=== PATIENT | male | born 1970 | race Caucasian/White ===

== ENCOUNTER 2016-12-13 19:35 | Emergency (ER) | payer OTHER, SELFPAY ==
[~2016-12-13] VITALS: Ht 185.4 cm; Wt 104.3 kg
[2016-12-13] MEDS ORDERED: OMEP20CA3 PO (19:46)
[2016-12-13] MEDS ORDERED: CEFTAROLINE FOSAMIL 600 MG in D5W MINI-BAG PLUS 50 ML IV ONE (20:30)
[2016-12-13 21:06] LABS: BASO # 0.1 K/mm3 (0.0-0.2); BASO % 0.6 % (0.0-1.0); EOS # 0.5 K/mm3 (0.0-0.50); EOS % 3.4 % (0.0-3.0); LARGE UNSTAINED CELL # 0.2 K/mm3 (0.0-0.4); LARGE UNSTAINED CELL % 1.4 % (0.0-4.0); LYMPH # 3.4 K/mm3 (1.5-4.5); LYMPH % 22.1 % (24.0-44.0); MEAN CORPUSCULAR HEMOGLOBIN 31.4 pg (27.0-33.0); MEAN CORPUSCULAR HGB CONC 34.6 g/dl (32.0-36.5); MEAN CORPUSCULAR VOLUME 90.7 fl (80.0-96.0); MONO # 1.4 K/mm3 (0.0-0.8); MONO % 9.8 % (0.0-5.0); NEUTROPHILS % 62.6 % (36.0-66.0); PLATELET COUNT, AUTOMATED 251 k/mm3 (150-450); RED CELL DISTRIBUTION WIDTH 12.2 % (11.5-14.5); WHITE BLOOD COUNT 14.4 K/mm3 (4.0-10.0)
[2016-12-13] MEDS ORDERED: ONDANSETRON 4MG/2ML VIAL (J2405) As Ordered ONE (21:11)
[2016-12-13] MEDS ORDERED: KETOROLAC 30 MG/ML VIAL (J1885) IV ONE (21:15)
[2016-12-13] MEDS ORDERED: ONDANSETRON 4MG/2ML VIAL (J2405) IV ONE (21:15)
[2016-12-13] MEDS ORDERED: BACT800T5 PO (21:59)
[2016-12-13 22:10] VITALS: BP 153/87
== END 2016-12-13 22:13 | disposition home or self-care (01) ==
LOC: M ED 21:37
DX: L03.114 Cellulitis of left upper limb (principal); L03.317 Cellulitis of buttock; L03.012 Cellulitis of left finger; L73.9 Follicular disorder, unspecified; K21.9 Gastro-esophageal reflux disease without esophagitis; F17.200 Nicotine dependence, unspecified, uncomplicated
CPT/HCPCS: 85025; 87040; 96365; 96375; 99282; J1885; J2405

== ENCOUNTER 2017-03-31 15:56 | Emergency (ER) | payer MEDICAID, SELFPAY ==
[~2017-03-31] VITALS: Ht 185.4 cm; Wt 110.1 kg
[~2017-03-31 15:56] MED LIST: BACT800T5 PO; OMEP20CA3 PO
[2017-03-31] MEDS ORDERED: ADVI200T PO (16:10)
[2017-03-31] MEDS ORDERED: CLINDAMYCIN 900 MG in APPROPRIATE DILUENT 1 EA IV ONE (16:45)
[2017-03-31 17:22] LABS: BASO # 0.1 K/mm3 (0.0-0.2); BASO % 0.8 % (0.0-1.0); EOS # 0.3 K/mm3 (0.0-0.50); EOS % 2.6 % (0.0-3.0); LARGE UNSTAINED CELL # 0.3 K/mm3 (0.0-0.4); LARGE UNSTAINED CELL % 2.6 % (0.0-4.0); LYMPH # 2.6 K/mm3 (1.5-4.5); LYMPH % 22.9 % (24.0-44.0); MEAN CORPUSCULAR HEMOGLOBIN 31.4 pg (27.0-33.0); MEAN CORPUSCULAR HGB CONC 35.3 g/dl (32.0-36.5); MONO % 9.1 % (0.0-5.0); NEUTROPHILS # 7.1 K/mm3 (1.8-7.7); NEUTROPHILS % 62.1 % (36.0-66.0); PLATELET COUNT, AUTOMATED 219 k/mm3 (150-450); RED CELL DISTRIBUTION WIDTH 12.4 % (11.5-14.5); WHITE BLOOD COUNT 11.4 K/mm3 (4.0-10.0)
[2017-03-31 17:34] LABS: ANION GAP 6 MEQ/L (8-16); BLOOD UREA NITROGEN 17 MG/DL (7-18); CALCIUM LEVEL 8.9 MG/DL (8.5-10.1); CARBON DIOXIDE LEVEL 25 MEQ/L (21-32); CHLORIDE LEVEL 107 MEQ/L (98-107); CREATININE FOR GFR 0.87 MG/DL (0.70-1.30); GLOMERULAR FILTRATION RATE > 60.0 (>60); GLUCOSE, FASTING 89 MG/DL (70-105); POTASSIUM SERUM 3.7 MEQ/L (3.5-5.1); SODIUM LEVEL 138 MEQ/L (136-145)
[2017-03-31 17:54] LABS: ERYTHROCYTE SEDIMENTATION RATE 21 mm/hr (0-15)
[2017-03-31] MEDS ORDERED: CLEO300C2 PO (18:52)
[2017-03-31 19:01] VITALS: BP 128/87
== END 2017-03-31 19:02 | disposition home or self-care (01) ==
LOC: M ED 15:56
DX: L02.411 Cutaneous abscess of right axilla (principal); L03.115 Cellulitis of right lower limb; Z86.14 Personal history of Methicillin resistant Staphylococcus aureus infection; J45.909 Unspecified asthma, uncomplicated; F17.200 Nicotine dependence, unspecified, uncomplicated; Z79.899 Other long term (current) drug therapy

== ENCOUNTER → 2017-07-09 | Outpatient (CLI) | payer OTHER ==
[~2017-07-09] MED LIST changes: +ADVI200T PO; +CLEO300C2 PO
--- NOTE | 2017-07-09 09:28 | REP ---
Cervical spine age views: Vertebral body heights and alignment are normal C1-C7. Kilos obscured. There is disc space narrowing and degenerative disc disease at C 03/04, / and /. The prevertebral soft tissues are normal. Facets are normally aligned. There is no listhesis on flexion or extension. The odontoid view is unremarkable. There is no bony foraminal encroachment. Impression: Multilevel degenerative disc disease, 99 Signed by Juanjo Cano MD 07/09/2017 09:19 A
--- NOTE | 2017-07-09 09:33 | REP ---
THORACOLUMBAR SPINE, TWO VIEWS: HISTORY: Left sciatica. There is no acute fracture or subluxation. There is an old compression fracture of the T11 vertebral body with minimal height loss. The L3-4 intervertebral disc is decreased in height consistent with disc degeneration. Osteophytes are present on T11, T12, L3 and L4. IMPRESSION: Degenerative change as described above. Signed by Justen Calderon MD 07/09/2017 09:38 A
== END ==
LOC: M LAB 08:29
PROVIDERS: ATTEND Obstetrics & Gynecology
DX: Z13.220 Encounter for screening for lipoid disorders (principal); M50.021 Cervical disc disorder at C4-C5 level with myelopathy; M50.022 Cervical disc disorder at C5-C6 level with myelopathy; M50.023 Cervical disc disorder at C6-C7 level with myelopathy; M51.36 Other intervertebral disc degeneration, lumbar region; M25.78 Osteophyte, vertebrae; Z13.1 Encounter for screening for diabetes mellitus

== ENCOUNTER → 2017-11-29 | Outpatient (CLI) | payer OTHER | LOC: M RAD 15:34 | DX: M21.372 Foot drop, left foot (principal); M51.36 Other intervertebral disc degeneration, lumbar region | CPT/HCPCS: 72148 ==

== ENCOUNTER → 2017-12-31 | Outpatient (CLI) | payer OTHER | LOC: M PAIN 14:45 | DX: G89.29 Other chronic pain (principal); M79.1 Myalgia; M54.5 Low back pain; M53.3 Sacrococcygeal disorders, not elsewhere classified; M46.96 Unspecified inflammatory spondylopathy, lumbar region; G25.81 Restless legs syndrome; E78.1 Pure hyperglyceridemia; F32.9 Major depressive disorder, single episode, unspecified; Z79.899 Other long term (current) drug therapy; Z87.891 Personal history of nicotine dependence | CPT/HCPCS: G0463 ==

== ENCOUNTER 2018-01-24 14:09 | Emergency (ER) | payer OTHER ==
[2018-01-24] MEDS: BACTRIM 160MG/800MG DS TAB PO (17:23)
== END 2018-01-24 17:26 | disposition home or self-care (01) ==
LOC: M ED 14:09
DX: S80.862A Insect bite (nonvenomous), left lower leg, initial encounter (principal); L03.115 Cellulitis of right lower limb; W57.XXXA Bitten or stung by nonvenomous insect and other nonvenomous arthropods, initial encounter; Y92.9 Unspecified place or not applicable; Y93.9 Activity, unspecified; Y99.9 Unspecified external cause status; I10 Essential (primary) hypertension; M54.9 Dorsalgia, unspecified; K21.9 Gastro-esophageal reflux disease without esophagitis; Z79.899 Other long term (current) drug therapy
CPT/HCPCS: 87186

== ENCOUNTER → 2018-02-01 | Outpatient (CLI) | payer OTHER ==
[~2018-02-01] MED LIST changes: -ADVI200T PO; -BACT800T5 PO; +BUPIVACAINE HCL 0.25% 10 ML VIAL As Ordered; +BUPIVACAINE HCL 0.25% 30 ML VIAL As Ordered; -CLEO300C2 PO; -OMEP20CA3 PO; +TRIAMCINOLONE ACETONIDE SUSP 40 MG/ML VIAL (J3301) As Ordered; +diazePAM 5 MG TAB As Ordered; +oxyCODONE 5MG TAB As Ordered
== END ==
LOC: M PAIN 14:45
DX: G89.29 Other chronic pain (principal); M79.1 Myalgia; M54.6 Pain in thoracic spine; M54.5 Low back pain; G25.81 Restless legs syndrome; E78.1 Pure hyperglyceridemia; F32.9 Major depressive disorder, single episode, unspecified; F17.210 Nicotine dependence, cigarettes, uncomplicated; Z79.899 Other long term (current) drug therapy
CPT/HCPCS: J3301

== ENCOUNTER → 2018-04-13 | Outpatient (CLI) | payer OTHER | LOC: M RAD 09:46 | DX: M25.712 Osteophyte, left shoulder (principal) | CPT/HCPCS: 73030 ==

== ENCOUNTER → 2018-04-29 | Outpatient (CLI) | payer OTHER | LOC: M PAIN 14:45 | DX: M54.42 Lumbago with sciatica, left side (principal); M54.41 Lumbago with sciatica, right side; M79.1 Myalgia; E78.1 Pure hyperglyceridemia; G25.81 Restless legs syndrome; F32.9 Major depressive disorder, single episode, unspecified; F17.200 Nicotine dependence, unspecified, uncomplicated; Z79.899 Other long term (current) drug therapy | CPT/HCPCS: G0463 ==

== ENCOUNTER → 2018-05-24 | Outpatient (CLI) | payer OTHER | LOC: M PAIN 12:45 | DX: M79.1 Myalgia (principal); M54.5 Low back pain; M54.6 Pain in thoracic spine; G25.81 Restless legs syndrome; F17.200 Nicotine dependence, unspecified, uncomplicated; Z79.899 Other long term (current) drug therapy | CPT/HCPCS: J3301 ==

== ENCOUNTER → 2018-07-06 | Outpatient (CLI) | payer OTHER | LOC: M PAIN 14:45 | DX: M79.18 Myalgia, other site (principal); M54.42 Lumbago with sciatica, left side; M54.41 Lumbago with sciatica, right side; G25.81 Restless legs syndrome; F17.210 Nicotine dependence, cigarettes, uncomplicated; Z79.899 Other long term (current) drug therapy | CPT/HCPCS: G0463 ==

== ENCOUNTER 2018-08-04 15:15 | Outpatient (RCR) | payer OTHER | END 2018-08-19 | LOC: M PT 08-10 13:59 | DX: G89.29 Other chronic pain (principal) | CPT/HCPCS: 97010 ==

== ENCOUNTER → 2018-08-15 | Outpatient (CLI) | payer OTHER | LOC: M SLEEP HO 12:45 | DX: G47.33 Obstructive sleep apnea (adult) (pediatric) (principal); R40.0 Somnolence ==

== ENCOUNTER → 2018-09-05 | Outpatient (CLI) | payer OTHER ==
[~2018-09-05] MED LIST changes: +ADVI200T PO; +ATOR40TA75; +AUGM875T28 PO; +BACT800T5 PO; -BUPIVACAINE HCL 0.25% 10 ML VIAL As Ordered; +BUPIVACAINE HCL 0.25% 10 ML VIAL As Ordered ONE; -BUPIVACAINE HCL 0.25% 30 ML VIAL As Ordered; +BUPIVACAINE HCL 0.25% 30 ML VIAL As Ordered ONE; +CLEO300C2 PO; +DULO1CAP2; +MOBI4TAB PO; +NORCOTAB PO; +OMEP20CA3 PO; +TESS100C PO; +TRAZ-160; -TRIAMCINOLONE ACETONIDE SUSP 40 MG/ML VIAL (J3301) As Ordered; +TRIAMCINOLONE ACETONIDE SUSP 40 MG/ML VIAL (J3301) As Ordered ONE; -diazePAM 5 MG TAB As Ordered; +diazePAM 5 MG TAB As Ordered ONE; -oxyCODONE 5MG TAB As Ordered; +oxyCODONE 5MG TAB As Ordered ONE
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
== END ==
LOC: M PAIN 14:15
PROVIDERS: ATTEND Anesthesiology
DX: M79.18 Myalgia, other site (principal); G25.81 Restless legs syndrome; E78.5 Hyperlipidemia, unspecified; F17.210 Nicotine dependence, cigarettes, uncomplicated; M54.41 Lumbago with sciatica, right side; M54.42 Lumbago with sciatica, left side; Z79.899 Other long term (current) drug therapy
CPT/HCPCS: 20553; J3301

== ENCOUNTER 2018-09-15 15:15 | Outpatient (RCR) | payer OTHER ==
[~2018-09-15 15:15] MED LIST changes: -BUPIVACAINE HCL 0.25% 10 ML VIAL As Ordered ONE; -BUPIVACAINE HCL 0.25% 30 ML VIAL As Ordered ONE; -TRIAMCINOLONE ACETONIDE SUSP 40 MG/ML VIAL (J3301) As Ordered ONE; -diazePAM 5 MG TAB As Ordered ONE; -oxyCODONE 5MG TAB As Ordered ONE
== END 2018-09-19 ==
LOC: M PT 15:15
PROVIDERS: ATTEND Obstetrics & Gynecology
DX: G89.29 Other chronic pain (principal)

== ENCOUNTER → 2018-10-03 | Outpatient (REF) | payer OTHER ==
[2018-10-03 14:06] LABS: HEMATOCRIT 43.3 % (42.0-52.0); HEMOGLOBIN 14.9 g/dl (13.5-17.5); MEAN CORPUSCULAR HGB CONC 34.4 g/dl (32.0-36.5); MEAN CORPUSCULAR VOLUME 90.2 fl (80.0-96.0); PLATELET COUNT, AUTOMATED 207 10^3/uL (150-450); WHITE BLOOD COUNT 9.3 10^3/uL (4.0-10.0)
== END ==
LOC: M LABDRAW1 12:27
DX: K62.5 Hemorrhage of anus and rectum (principal); R19.7 Diarrhea, unspecified

== ENCOUNTER → 2018-10-04 | Outpatient (REF) | payer OTHER ==
[2018-10-04 12:51] LABS: APPEARANCE, URINE CLEAR (CLEAR); BACTERIA, URINE AUTO NEGATIVE (NEGATIVE); BILIRUBIN, URINE AUTO NEGATIVE (NEGATIVE); BLOOD, URINE BLOOD NEGATIVE (NEGATIVE); COLOR, URINE YELLOW (YELLOW); GLUCOSE, URINE (UA) AUTO NEGATIVE (NEGATIVE); KETONE, URINE AUTO NEGATIVE (NEGATIVE); LEUKOCYTE ESTERASE, URINE AUTO NEGATIVE (NEGATIVE); MUCUS, URINE SMALL (NEGATIVE); NITRITE, URINE AUTO NEGATIVE (NEGATIVE); PROTEIN, URINE AUTO NEGATIVE (NEGATIVE); RBC, URINE AUTO 1 /HPF (0-3); SPECIFIC GRAVITY URINE AUTO 1.026 (1.002-1.035); SQUAMOUS EPITHELIAL CELL UR AU 0 /HPF (0-6); UROBILINOGEN, URINE AUTO 0.2 mg/dL (0.0-2.0); WBC, URINE AUTO 0 /HPF (0-3)
== END ==
LOC: M SFHCPLAZ 12:10
PROVIDERS: ATTEND Student in an Organized Health Care Education/Training Program
DX: N50.89 Other specified disorders of the male genital organs (principal)

== ENCOUNTER → 2018-10-08 | Outpatient (CLI) | payer OTHER ==
--- NOTE | 2018-10-12 09:41 | SLEEPCENT ---
DATE OF PROCEDURE: 10/08/2018 ORDERING PROVIDER: Pina Waddell NP Nocturnal polysomnography was performed for the titration of pressure therapy in this patient with a clinical history of obstructive sleep apnea syndrome confirmed by home testing revealing a respiratory event index of 33.9. For testing, the patient was fit with a [employer]ics Natty View full face mask of medium size, 4 cm of water pressure was initially applied to the circuit and the lights were extinguished. 8 hours and 7 minutes of data were reviewed. There were 327 minutes of sleep identified. Sleep latency was normal at 8 minutes. REM sleep was delayed at 299 minutes. Sleep architecture improved with optimal pressure therapy. Overall sleep efficiency was 68.5%. The electrocardiogram showed a sinus rhythm with an average heart rate of 77 beats per minute. EEG showed fairly normal waveforms for awake and sleep. Respiratory events were best palliated with C-PAP at a pressure of 8 cm of water. There was some persistent limb activity. There were two trains of 30 events and a limb movement arousal index of 13.2. IMPRESSION: 1. Obstructive sleep apnea syndrome (G47.33). 2. Possible periodic limb movement disorder (G47.61). Limb movement arousal index 13.2. RECOMMENDATIONS: Nightly use of pressure therapy at 8 cm of water should be sufficient to address the patient's respiratory obstructive events. Should sleep symptoms persist, interventions to the frequency arousal from limb activity may also be helpful.
== END ==
LOC: M SLEEP 19:04
PROVIDERS: ATTEND Nurse Practitioner Family
DX: G47.33 Obstructive sleep apnea (adult) (pediatric) (principal)

== ENCOUNTER → 2018-10-10 | Outpatient (CLI) | payer OTHER ==
--- NOTE | 2018-10-10 19:29 | REP ---
Clinical: Left scrotal pain/mass. Technique: Real time emanuel scale and color Doppler evaluation using linear high frequency transducer. Findings: The bilateral testicles are normal in contour, size, echogenicity, and vascularity without evidence for intratesticular mass lesion, infectious/inflammatory process, or torsion. Right epididymal head cyst measures 1.1 cm. Left epididymal head cyst corresponding to the palpable mass measures 3.9 cm. Small left varicocele up to 2.6 mm diameter on Valsalva noted. Small nonspecific bilateral hydroceles noted. Right testicle measures 5.2 x 2.6 x 3.6 cm. Left testicle measures 5.3 x 2.8 x 3.7 cm. Impression: 1. Left-sided palpable mass corresponds to 3.9 cm left epididymal head cyst. 1.1 cm right epididymal head cyst also noted. 2. The testicles are normal in appearance and vascularity. Electronically Signed by Julio Rodriguez MD 10/10/2018 07:22 P
== END ==
LOC: M RAD 11:19
PROVIDERS: ATTEND Student in an Organized Health Care Education/Training Program
DX: N50.89 Other specified disorders of the male genital organs (principal)

== ENCOUNTER 2018-12-09 10:06 | Day surgery (SDC) | payer OTHER ==
[~2018-12-09] VITALS: Ht 185.4 cm; Wt 120.7 kg
[~2018-12-09 10:06] MED LIST changes: +ACET-683 PO; -ATOR40TA75; +ATOR40TA75 PO; +DULO1CAP2 PO; +LIDOCAINE 2% INJ 100 MG/5 ML SDV (FOR ANES.) As Ordered ONE; +METH75TA PO; +NICO21DI31 TOP; +NS 1,000 ML IV ONE; +PRAM0.5T7 PO; +PROPOFOL 200 MG/20 ML VIAL As Ordered ONE; +VENTAER INH
[2018-12-09] MEDS ORDERED: PROPOFOL 200 MG/20 ML VIAL As Ordered ONE ×2 (11:48→12:00)
--- NOTE | 2018-12-09 12:10 | ROOR ---
Patient Name: Demetrius Shepherd Procedure Date: 12/09/2018 11:27 AM Date of : 1970 Age: 48 Room: [facility] Gender: Male Note Status: Finalized Procedure: Colonoscopy Indications: Chronic diarrhea, Hematochezia Providers: Javier Conklin MD Referring MD: Yanni Prince Do Requesting Provider: MCKENNA BOYCE MD Medicines: Monitored Anesthesia Care Complications: No immediate complications. Procedure: Pre-Anesthesia Assessment: - Prior to the procedure, a History and Physical was performed, and patient medications and allergies were reviewed. The patient is competent. The risks and benefits of the procedure and the sedation options and risks were discussed with the patient. All questions were answered and informed consent was obtained. Patient identification and proposed procedure were verified by the physician, the nurse and the anesthesiologist in the procedure room. Mental Status Examination: alert and oriented. Airway Examination: normal oropharyngeal airway and neck mobility. Respiratory Examination: clear to auscultation. CV Examination: normal. Prophylactic Antibiotics: The patient does not require prophylactic antibiotics. Prior Anticoagulants: The patient has taken no previous anticoagulant or antiplatelet agents. ASA Grade Assessment: II - A patient with mild systemic disease. After reviewing the risks and benefits, the patient was deemed in satisfactory condition to undergo the procedure. The anesthesia plan was to use monitored anesthesia care (MAC). Immediately prior to administration of medications, the patient was re-assessed for adequacy to receive sedatives. The heart rate, respiratory rate, oxygen saturations, blood pressure, adequacy of pulmonary ventilation, and response to care were monitored throughout the procedure. The physical status of the patient was re-assessed after the procedure. The Colonoscope was introduced through the anus and advanced to the terminal ileum, with identification of the appendiceal orifice and IC valve. The colonoscopy was performed without difficulty. The patient tolerated the procedure well. The quality of the bowel preparation was good. The terminal ileum, ileocecal valve, appendiceal orifice, and rectum were photographed. Scope insertion time was 3 minutes. Scope withdrawal time was 9 minutes. The total duration of the procedure was 12 minutes. Findings: The perianal and digital rectal examinations were normal. The ileocecal valve contained a benign-appearing, intrinsic moderate stenosis that was non-traversed. Biopsies were taken with a cold forceps for histology. Verification of patient identification for the specimen was done by the physician and nurse using the patient's name, date and medical record number. Estimated blood loss was minimal. Five sessile polyps were found in the recto-sigmoid colon. The polyps were 5 to 8 mm in size. These polyps were removed with a cold snare. Resection and retrieval were complete. Multiple small and large-mouthed diverticula were found from sigmoid to descending colon. There was no evidence of diverticular bleeding. Non-bleeding external and internal hemorrhoids were found during retroflexion. The hemorrhoids were medium-sized. Impression: - Stricture at the ileocecal valve. Biopsied. - Five 5 to 8 mm polyps at the recto-sigmoid colon, removed with a cold snare. Resected and retrieved. - Moderate diverticulosis from sigmoid to descending colon. There was no evidence of diverticular bleeding. - Non-bleeding external and internal hemorrhoids. Recommendation: - Patient has a contact number available for emergencies. The signs and symptoms of potential delayed complications were discussed with the patient. Return to normal activities tomorrow. Written discharge instructions were provided to the patient. - High fiber diet. - Continue present medications. - Preparation H suppository: Insert rectally daily for 5 days. - Await pathology results. - Repeat colonoscopy in 3 - 5 years for surveillance based on pathology results. - Based on the biopsy results you will receive a phone call from GI clinic in 2-3 weeks to review the pathology results AND/OR your results will be faxed to your Primary care physician. - Return to primary care physician. Javier Conklin MD Javier Conklin MD 12/09/2018 12:09:58 PM This report has been signed electronically. Number of Addenda: 0 Note Initiated On: 12/09/2018 11:27 AM Estimated Blood Loss: Estimated blood loss was minimal.
--- NOTE | 2018-12-09 12:11 | ROOR ---
Patient Name: Demetrius Shepherd Procedure Date: 12/09/2018 11:25 AM Date of : 1970 Age: 48 Room: [facility] Gender: Male Note Status: Finalized Procedure: Upper GI endoscopy Indications: Suspected gastro-esophageal reflux disease Providers: Javier Conklin MD Referring MD: Yanni Prince Do Requesting Provider: MCKENNA BOYCE MD Medicines: Monitored Anesthesia Care Complications: No immediate complications. Procedure: Pre-Anesthesia Assessment: - Prior to the procedure, a History and Physical was performed, and patient medications and allergies were reviewed. The patient is competent. The risks and benefits of the procedure and the sedation options and risks were discussed with the patient. All questions were answered and informed consent was obtained. Patient identification and proposed procedure were verified by the physician, the nurse and the anesthesiologist in the procedure room. Mental Status Examination: alert and oriented. Airway Examination: normal oropharyngeal airway and neck mobility. Respiratory Examination: clear to auscultation. CV Examination: normal. Prophylactic Antibiotics: The patient does not require prophylactic antibiotics. Prior Anticoagulants: The patient has taken no previous anticoagulant or antiplatelet agents. ASA Grade Assessment: II - A patient with mild systemic disease. After reviewing the risks and benefits, the patient was deemed in satisfactory condition to undergo the procedure. The anesthesia plan was to use monitored anesthesia care (MAC). Immediately prior to administration of medications, the patient was re-assessed for adequacy to receive sedatives. The heart rate, respiratory rate, oxygen saturations, blood pressure, adequacy of pulmonary ventilation, and response to care were monitored throughout the procedure. The physical status of the patient was re-assessed after the procedure. The Endoscope was introduced through the mouth, and advanced to the second part of duodenum. The upper GI endoscopy was accomplished without difficulty. The patient tolerated the procedure well. Findings: The Z-line was regular and was found 40 cm from the incisors. LA Grade A (one or more mucosal breaks less than 5 mm, not extending between tops of 2 mucosal folds) esophagitis with no bleeding was found in the lower third of the esophagus. Biopsies were taken with a cold forceps for histology. Verification of patient identification for the specimen was done by the physician and nurse using the patient's name, date and medical record number. Scattered and patchy moderate inflammation characterized by erosions, erythema, granularity and aphthous ulcerations was found in the gastric antrum. Biopsies were taken with a cold forceps for Helicobacter pylori testing. The duodenal bulb and second portion of the duodenum were normal. Biopsies for histology were taken with a cold forceps for evaluation of celiac disease. Impression: - Z-line regular, 40 cm from the incisors. - LA Grade A reflux esophagitis. Biopsied. - Gastritis. Biopsied. - Normal duodenal bulb and second portion of the duodenum. Biopsied. Recommendation: - Patient has a contact number available for emergencies. The signs and symptoms of potential delayed complications were discussed with the patient. Return to normal activities tomorrow. Written discharge instructions were provided to the patient. - High fiber diet. - Continue present medications. - Await pathology results. - Follow an antireflux regimen. - Based on the biopsy results you will receive a phone call from GI clinic in 2-3 weeks to review the pathology results AND/OR your results will be faxed to your Primary care physician. - Return to primary care physician. Javier Conklin MD Javier Conklin MD 12/09/2018 12:11:26 PM This report has been signed electronically. Number of Addenda: 0 Note Initiated On: 12/09/2018 11:25 AM Estimated Blood Loss: Estimated blood loss was minimal.
[2018-12-09 12:35] VITALS: BP 135/75
== END 2018-12-09 12:50 | disposition home or self-care (01) ==
LOC: M OPP 10:06
PROVIDERS: ATTEND Internal Medicine Gastroenterology
DX: K56.699 Other intestinal obstruction unspecified as to partial versus complete obstruction (principal); K63.5 Polyp of colon; K64.8 Other hemorrhoids; K52.9 Noninfective gastroenteritis and colitis, unspecified; K92.1 Melena; K57.30 Diverticulosis of large intestine without perforation or abscess without bleeding; K21.0 Gastro-esophageal reflux disease with esophagitis; K29.70 Gastritis, unspecified, without bleeding; G47.30 Sleep apnea, unspecified; Z79.899 Other long term (current) drug therapy; F17.210 Nicotine dependence, cigarettes, uncomplicated

== ENCOUNTER 2019-05-07 01:18 | Emergency (ER) | payer OTHER ==
[~2019-05-07] VITALS: Ht 185.4 cm; Wt 112.3 kg
[~2019-05-07 01:18] MED LIST changes: -DULO1CAP2; -DULO1CAP2 PO; +DULO1CAP5; +DULO1CAP5 PO; +HYDR-3715 PO; -LIDOCAINE 2% INJ 100 MG/5 ML SDV (FOR ANES.) As Ordered ONE; +METH750T2 PO; -METH75TA PO; -NORCOTAB PO; -NS 1,000 ML IV ONE; -OMEP20CA3 PO; +OMEP20CA4 PO; -PROPOFOL 200 MG/20 ML VIAL As Ordered ONE; -TRAZ-160; +TRAZ-252
[2019-05-07 01:19] VITALS: BP 123/77
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
--- NOTE | 2019-05-07 21:28 | ED PDOC ---
Post-Departure Follow-Up dr yan faxed formal report of ct c spine for Dwayne Doe MD May 07, 2019 21:28
--- NOTE | 2019-05-08 12:09 | REP ---
CHEST PA AND LATERAL: 05/07/2019. Clinical history: Cough with syncope. Comparison: PA chest 01/22/2008. Findings: Lungs are adequately inflated. There is a somewhat lordotic projection. There is no effusion, infiltrate, atelectasis or mass. Some streaky perihilar densities and peribronchial thickening suggesting some bronchitis or reactive airway disease. Heart, mediastinal and hilar contours are normal. The aorta and airway intact. Bones without acute finding. Impression: 1. Perihilar changes of bronchitis without infiltrate, effusion or other acute finding. Electronically Signed by Marv Alvarado MD 05/08/2019 12:23 P
== END 2019-05-07 04:29 | disposition home or self-care (01) ==
LOC: M ED 01:18
DX: R55 Syncope and collapse (principal); R05 Cough; Z79.899 Other long term (current) drug therapy; F17.210 Nicotine dependence, cigarettes, uncomplicated

== ENCOUNTER → 2019-12-04 | Outpatient (REF) | payer OTHER ==
[~2019-12-04] MED LIST changes: +OMEP1CAP73 PO; -OMEP20CA4 PO
== END ==
LOC: M SFHCPLAZ 15:47
PROVIDERS: ATTEND Family Medicine
DX: Z13.1 Encounter for screening for diabetes mellitus (principal); E78.2 Mixed hyperlipidemia

== ENCOUNTER → 2019-12-12 | Outpatient (CLI) | payer OTHER ==
--- NOTE | 2019-12-12 09:21 | REP ---
Clinical: Bilateral foot pain. Technique: AP, lateral, bilateral oblique views of the right and left foot. Findings: Right foot demonstrates generalized age-related changes without overt osteoarthritic findings. No acute or healed injury identified. Lateral view without calcaneal heal spur. No abnormal soft tissue densities or calcifications appreciated. Left foot demonstrates generalized age-related changes without no significant osteoarthritic findings. No acute or healed injury identified. Lateral view demonstrates small calcifications at the insertion of the Achilles tendon on the calcaneus. A minuscule forming calcaneal heal spur is suggested. No further abnormal soft tissue calcifications or densities noted. Impression: Minimal findings as described above. Electronically Signed by Julio Rodriguez MD 12/12/2019 09:13 A
[2019-12-12 12:58] LABS: BLOOD UREA NITROGEN 10 MG/DL (7-18); CALCIUM LEVEL 9.1 MG/DL (8.5-10.1); CARBON DIOXIDE LEVEL 30 MEQ/L (21-32); CHLORIDE LEVEL 107 MEQ/L (98-107); CHOLESTEROL LEVEL 169 MG/DL (<200); CHOLESTEROL RISK RATIO 4.333 (<5); CREATININE FOR GFR 0.87 MG/DL (0.70-1.30); GLOMERULAR FILTRATION RATE > 60.0 (>60); GLUCOSE, FASTING 106 MG/DL (70-100); HDL CHOLESTEROL 39 MG/DL (>40); LDL CHOLESTEROL 58 MG/DL (<100); NON-HDL-C 130 MG/DL; SODIUM LEVEL 142 MEQ/L (136-145); TRIGLYCERIDES LEVEL 360 MG/DL (<150)
== END ==
LOC: M WUC 08:51
PROVIDERS: ATTEND Obstetrics & Gynecology
DX: E78.2 Mixed hyperlipidemia (principal); Z13.1 Encounter for screening for diabetes mellitus; M79.672 Pain in left foot; M79.671 Pain in right foot

== ENCOUNTER 2020-11-12 15:02 | Outpatient (RCR) | payer OTHER ==
[~2020-11-12 15:02] MED LIST changes: +METH-1165 PO; -METH750T2 PO; +NICO1DIS12 TOP; -NICO21DI31 TOP
== END 2020-11-17 ==
LOC: M PT 15:02
PROVIDERS: ATTEND Nurse Practitioner Adult Health
DX: M54.41 Lumbago with sciatica, right side (principal); M54.42 Lumbago with sciatica, left side; G89.29 Other chronic pain; M51.36 Other intervertebral disc degeneration, lumbar region; M43.06 Spondylolysis, lumbar region; M48.061 Spinal stenosis, lumbar region without neurogenic claudication

== ENCOUNTER → 2020-11-25 | Outpatient (REF) | payer OTHER | LOC: M SFHCPLAZ 09:53 | PROVIDERS: ATTEND Family Medicine | DX: Z00.00 Encounter for general adult medical examination without abnormal findings (principal); E78.1 Pure hyperglyceridemia; Z53.9 Procedure and treatment not carried out, unspecified reason ==

== ENCOUNTER → 2020-12-03 | Outpatient (CLI) | payer OTHER ==
[2020-12-03 16:47] LABS: ALBUMIN 3.9 GM/DL (3.2-5.2); ALT/SGPT 85 U/L (12-78); BILIRUBIN,TOTAL 0.3 MG/DL (0.2-1.0); BLOOD UREA NITROGEN 12 MG/DL (7-18); CALCIUM LEVEL 9.2 MG/DL (8.5-10.1); CARBON DIOXIDE LEVEL 30 MEQ/L (21-32); CHLORIDE LEVEL 103 MEQ/L (98-107); CHOLESTEROL LEVEL 184 MG/DL (<200); CHOLESTEROL RISK RATIO 4.842 (<5); CREATININE FOR GFR 0.85 MG/DL (0.70-1.30); GLOMERULAR FILTRATION RATE > 60.0 (>60); GLUCOSE, FASTING 95 MG/DL (70-100); HDL CHOLESTEROL 38 MG/DL (>40); LDL CHOLESTEROL 86 MG/DL (<100); NON-HDL-C 146 MG/DL; POTASSIUM SERUM 3.6 MEQ/L (3.5-5.1); SODIUM LEVEL 138 MEQ/L (136-145); TOTAL PROTEIN 7.4 GM/DL (6.4-8.2); TRIGLYCERIDES LEVEL 299 MG/DL (<150)
[2020-12-03 18:34] LABS: HEMOGLOBIN A1c 6.3 %
== END ==
LOC: M WUC 13:06
PROVIDERS: ATTEND Internal Medicine
DX: E78.1 Pure hyperglyceridemia (principal)

== ENCOUNTER 2020-12-10 15:15 | Outpatient (RCR) | payer OTHER | END 2020-12-18 | LOC: M PT 15:15 | PROVIDERS: ATTEND Nurse Practitioner Adult Health | DX: M54.41 Lumbago with sciatica, right side (principal); M54.42 Lumbago with sciatica, left side; G89.29 Other chronic pain; M51.36 Other intervertebral disc degeneration, lumbar region; M43.06 Spondylolysis, lumbar region; M48.061 Spinal stenosis, lumbar region without neurogenic claudication ==

== ENCOUNTER → 2021-02-25 | Outpatient (CLI) | payer OTHER ==
--- NOTE | 2021-02-26 06:56 | REP ---
INDICATION: ATHEROSCLEROSIS COMPARISON: None. TECHNIQUE: Real time tamayo scale and color Doppler evaluation of the bilateral lower extremity arterial vasculature using linear high frequency transducer. FINDINGS: Tamayo scale and color images demonstrate mild amounts of atheromatous plaquing without focal stenosis or occlusion identified. Doppler interrogation demonstrates normal triphasic arterial wave forms and velocities bilaterally. Right ALESSIO: 1.0 Left ALESSIO: 1.0 Peak systolic velocities (cm/sec) Common femoral artery: Right 145; Left 182 Profunda femoris: Right 86; Left 140 SFA (proximal): Right 120; Left 127 SFA (mid): Right 104; Left 113 SFA (distal): Right 95; Left 110 Popliteal artery: Right 65; Left 68 CHARLENE (prox.): Right 98; Left 95 Tibioperoneal trunk: Right 35; Left 57 PERIODONTIST (prox.): Right 59; Left 68 PERIODONTIST (distal): Right 78; Left 84 CHARLENE (distal): Right 97; Left 93 IMPRESSION: Minimal atheromatous plaquing without areas of narrowing, stenosis or occlusion. <Electronically signed by Julio Rodriguez > 02/26/21 [id number]
== END ==
LOC: M RAD 12:59
PROVIDERS: ATTEND Physician Assistant
DX: I70.213 Atherosclerosis of native arteries of extremities with intermittent claudication, bilateral legs (principal)

== ENCOUNTER → 2021-07-18 | Outpatient (CLI) | payer OTHER ==
--- NOTE | 2021-07-18 14:22 | REP ---
INDICATION: VENOUS INSUFFICIENCY CHRONIC PERIPHERAL ? REFLUX. COMPARISON: None. TECHNIQUE: Multiple ultrasonographic images of the deep venous structures of the bilateral lower extremity were obtained from the inguinal ligament to the ankle. Venous compression techniques, color doppler imaging, and augmentation techniques were also obtained where appropriate. As per the ACR guidelines the anterior tibial vein can not be effectively evaluated. Only compression techniques in the calf on the peroneal and posterior tibial veins was attempted/performed. FINDINGS: There is no abnormal echogenic material seen within any of the visualized deep venous structures that would suggest acute thrombosis. Coaptation is unremarkable throughout. Doppler interrogation shows an expected response to respiratory variability and augmentation in the thigh. Compression techniques in the calf showed no abnormality. The color flow images show what appears to be a normal vascular pattern throughout the thigh. On the right: No reflux was seen in the common femoral vein. An anterior accessory greater saphenous vein was present, however, no reflux was identified. No reflux was seen in the greater saphenous vein at the saphenofemoral junction the AP dimension of which measured 4 mm. No reflux was seen in the greater saphenous vein at the mid thigh the AP dimension of which measured 3 mm. No reflux was seen in the greater saphenous vein at the knee the AP dimension of which measured 3 mm. No reflux was seen in any portion of the superficial femoral vein or popliteal vein. No reflux was seen in the lesser saphenous vein the AP dimension of which measured 2 mm. On the left: No reflux was seen in the common femoral vein. An anterior accessory greater saphenous vein was present, however, no reflux was identified. No reflux was seen in the greater saphenous vein at the saphenofemoral junction the AP dimension of which measured 3 mm. No reflux was seen in the greater saphenous vein at the mid thigh the AP dimension of which measured 3 mm. No reflux was seen in the greater saphenous vein at the knee the AP dimension of which measured 2 mm. No reflux was seen in any portion of the superficial femoral vein or popliteal vein. No reflux was seen in the lesser saphenous vein the AP dimension of which measured 3 mm. IMPRESSION: There is no ultrasonographic evidence of deep venous thrombosis involving any of the visualized deep venous structures of the bilateral lower extremity as described above. Negative bilateral reflux study as described above. <Electronically signed by Aman Deshpande > 07/18/21 [id number]
== END ==
LOC: M RAD 11:27
PROVIDERS: ATTEND Surgery Vascular Surgery
DX: I87.2 Venous insufficiency (chronic) (peripheral) (principal)

== ENCOUNTER → 2022-06-19 | Outpatient (CLI) | payer OTHER ==
[2022-06-19 16:52] LABS: CHOLESTEROL RISK RATIO 3.342 (<5)
== END ==
LOC: M PLALAB 13:15
PROVIDERS: ATTEND Student in an Organized Health Care Education/Training Program
DX: E78.00 Pure hypercholesterolemia, unspecified (principal); M25.511 Pain in right shoulder; M25.512 Pain in left shoulder; M79.641 Pain in right hand; M79.642 Pain in left hand

== ENCOUNTER → 2023-06-23 | Outpatient (CLI) | payer OTHER ==
[2023-06-23 16:20] LABS: ALKALINE PHOSPHATASE 60 U/L (46-116); ALT/SGPT 46 U/L (7.0-40); AST/SGOT 22 U/L (<34); BILIRUBIN,TOTAL 0.4 MG/DL (0.3-1.2); BLOOD UREA NITROGEN 12 MG/DL (9-23); CALCIUM LEVEL 9.1 MG/DL (8.5-10.1); CARBON DIOXIDE LEVEL 30 MMOL/L (20-31); CHLORIDE LEVEL 106 MMOL/L (98-107); CHOLESTEROL LEVEL 146 MG/DL (<200); CHOLESTEROL RISK RATIO 4.11 (<5); CREATININE FOR GFR 0.76 MG/DL (0.70-1.30); GLOMERULAR FILTRATION RATE > 60.0 (>56); GLUCOSE, FASTING 72 MG/DL (60-100); HDL CHOLESTEROL 35.5 MG/DL (>40); LDL CHOLESTEROL 56.3 MG/DL (<100); NON-HDL-C 110.5 MG/DL; POTASSIUM SERUM 3.8 MMOL/L (3.5-5.1); SODIUM LEVEL 143 MMOL/L (136-145); TOTAL PROTEIN 7.5 G/DL (5.7-8.2); TRIGLYCERIDES LEVEL 271 MG/DL (<150)
== END ==
LOC: M PLALAB 12:11
PROVIDERS: ATTEND Student in an Organized Health Care Education/Training Program
DX: Z00.00 Encounter for general adult medical examination without abnormal findings (principal)

== ENCOUNTER → 2023-07-12 | Outpatient (CLI) | payer OTHER | LOC: M PLAIMG 10:53 | PROVIDERS: ATTEND Student in an Organized Health Care Education/Training Program | DX: M54.2 Cervicalgia (principal) ==

== ENCOUNTER → 2023-10-13 | Outpatient (CLI) | payer OTHER ==
[2023-10-13 16:52] LABS: HEMOGLOBIN A1c 6.8 % (4.0-6.0)
[2023-10-13 17:07] LABS: CHOLESTEROL RISK RATIO 4.69 (<5); HDL CHOLESTEROL 30.9 MG/DL (>40); LDL CHOLESTEROL 61.9 MG/DL (<100); NON-HDL-C 114.1 MG/DL
== END ==
LOC: M PLALAB 11:53
PROVIDERS: ATTEND Student in an Organized Health Care Education/Training Program
DX: E78.1 Pure hyperglyceridemia (principal); R73.03 Prediabetes

== ENCOUNTER → 2023-10-19 | Outpatient (REF) | LOC: M PLAIMG 10:20 | PROVIDERS: ATTEND Internal Medicine | DX: R52 Pain, unspecified (principal); M51.36 Other intervertebral disc degeneration, lumbar region ==

== ENCOUNTER → 2024-07-21 | Outpatient (CLI) | payer OTHER | LOC: M PLAIMG 06:51 | PROVIDERS: ATTEND Pain Medicine Interventional Pain Medicine | DX: M54.16 Radiculopathy, lumbar region (principal); M51.27 Other intervertebral disc displacement, lumbosacral region ==

== ENCOUNTER 2024-12-03 19:39 | Emergency (ER) | payer OTHER ==
[~2024-12-03] VITALS: Ht 185.4 cm; Wt 121.4 kg
[2024-12-03] MEDS ORDERED: METF500T13 PO (19:53)
[2024-12-03] MEDS ORDERED: GABA-1172 PO (19:53)
[2024-12-03] MEDS ORDERED: ATOR80TA59 PO (19:53)
[2024-12-03] MEDS ORDERED: ROPI0.5T33 PO (19:53)
[2024-12-03] MEDS ORDERED: CYCL10TA20 PO (19:53)
[2024-12-03 20:43] LABS: APPEARANCE, URINE HAZY (CLEAR); BACTERIA, URINE AUTO NEGATIVE (NEGATIVE); BILIRUBIN, URINE AUTO NEGATIVE (NEGATIVE); BLOOD, URINE BLOOD NEGATIVE (NEGATIVE); COLOR, URINE AMBER (YELLOW); GLUCOSE, URINE (UA) AUTO NEGATIVE (NEGATIVE); KETONE, URINE AUTO TRACE mg/dL (NEGATIVE); LEUKOCYTE ESTERASE, URINE AUTO NEGATIVE (NEGATIVE); MUCUS, URINE SMALL (NEGATIVE); NITRITE, URINE AUTO NEGATIVE (NEGATIVE); PROTEIN, URINE AUTO 1+ mg/dL (NEGATIVE); RBC, URINE AUTO 0 /HPF (0-3); SPECIFIC GRAVITY URINE AUTO 1.025 (1.002-1.035); SQUAMOUS EPITHELIAL CELL UR AU 0 /HPF (0-6); WBC, URINE AUTO 1 /HPF (0-3)
[2024-12-03 21:15] VITALS: BP 143/82; TEMP 97.8; O2SAT 97
== END 2024-12-03 21:52 | disposition home or self-care (01) ==
LOC: M ED 19:39
DX: N50.3 Cyst of epididymis (principal); K21.9 Gastro-esophageal reflux disease without esophagitis; J45.909 Unspecified asthma, uncomplicated; Z79.02 Long term (current) use of antithrombotics/antiplatelets; Z79.52 Long term (current) use of systemic steroids; Z79.4 Long term (current) use of insulin; Z79.899 Other long term (current) drug therapy

== ENCOUNTER → 2024-12-15 | Outpatient (CLI) | payer OTHER ==
[~2024-12-15] MED LIST changes: +ATOR80TA59 PO; +CYCL10TA20 PO; +GABA-1172 PO; +METF500T13 PO; +ROPI0.5T33 PO
[2024-12-15 13:45] LABS: BASO # 0.1 10^3/uL (0.0-0.2); BASO % 0.8 % (0.0-1.0); EOS # 0.4 10^3/uL (0.0-0.5); EOS % 3.2 % (0.0-3.0); HEMATOCRIT 43.2 % (42.0-52.0); HEMOGLOBIN 14.7 g/dl (13.5-17.5); LYMPH # 3.2 10^3/uL (1.5-5.0); LYMPH % 27.5 % (24.0-44.0); MEAN CORPUSCULAR HEMOGLOBIN 31.3 pg (27.0-33.0); MEAN CORPUSCULAR VOLUME 91.9 fl (80.0-96.0); MONO # 1.2 10^3/uL (0.0-0.8); MONO % 10.4 % (2.0-8.0); NEUTROPHILS # 6.7 10^3/uL (1.5-8.5); NEUTROPHILS % 57.2 % (36.0-66.0); PLATELET COUNT, AUTOMATED 230 10^3/uL (150-450); WHITE BLOOD COUNT 11.7 10^3/uL (4.0-10.0)
[2024-12-15 13:53] LABS: ERYTHROCYTE SEDIMENTATION RATE 24 mm/hr (0-20)
[2024-12-15 14:20] LABS: ALBUMIN 3.9 G/DL (3.2-5.2); ALKALINE PHOSPHATASE 76 U/L (40-129); ALT/SGPT 63 U/L (7.0-40); AST/SGOT 27 U/L (<34); BILIRUBIN,TOTAL 0.3 MG/DL (0.3-1.2); BLOOD UREA NITROGEN 11 MG/DL (9-23); CALCIUM LEVEL 9.2 MG/DL (8.5-10.1); CARBON DIOXIDE LEVEL 28 MMOL/L (20-31); CHLORIDE LEVEL 106 MMOL/L (98-107); CHOLESTEROL LEVEL 112 MG/DL (<200); CHOLESTEROL RISK RATIO 3.66 (<5); CREATININE FOR GFR 0.69 MG/DL (0.70-1.30); GLOMERULAR FILTRATION RATE > 60.0 (>56); GLUCOSE, FASTING 132 MG/DL (60-100); HDL CHOLESTEROL 30.6 MG/DL (>40); HEMOGLOBIN A1c 6.9 % (4.0-6.0); IRON (FE) 73 UG/DL (65-175); LDL CHOLESTEROL 45.8 MG/DL (<100); NON-HDL-C 81.4 MG/DL; PERCENT SATURATION 23.5 % (19.7-50.0); POTASSIUM SERUM 3.7 MMOL/L (3.5-5.1); SODIUM LEVEL 144 MMOL/L (136-145); TOTAL IRON BINDING CAPACITY 310 UG/DL (250-425); TOTAL PROTEIN 7.4 G/DL (5.7-8.2); TRIGLYCERIDES LEVEL 178 MG/DL (<150)
== END ==
LOC: M WUC 09:51
PROVIDERS: ATTEND Student in an Organized Health Care Education/Training Program
DX: Z00.00 Encounter for general adult medical examination without abnormal findings (principal)

== ENCOUNTER → 2025-01-17 | Outpatient (CLI) | payer OTHER ==
[~2025-01-17] MED LIST changes: +IBUP200T46 PO
== END ==
LOC: M WUC 13:39
PROVIDERS: ATTEND Nurse Practitioner Family
DX: Z01.818 Encounter for other preprocedural examination (principal)

== ENCOUNTER 2025-01-26 10:00 | Day surgery (SDC) | payer OTHER ==
[~2025-01-26] VITALS: Ht 185.4 cm; Wt 120.1 kg
[2025-01-26] MEDS: LR 1,000 ML IV SCH (10:40)
[2025-01-26] MEDS ORDERED: fentaNYL 100 MCG/2 ML INJECTION As Ordered ONE (10:43)
[2025-01-26] MEDS ORDERED: propofoL 200 MG/20 ML VIAL As Ordered ONE (10:43)
[2025-01-26] MEDS ORDERED: ACETAMINOPHEN 1000MG/100ML IV BAG As Ordered ONE (10:43)
[2025-01-26] MEDS ORDERED: LIDOCAINE 2% 100MG/5ML SDV (FOR ANES.) As Ordered ONE (10:43)
[2025-01-26] MEDS ORDERED: ONDANSETRON 4MG 2ML VIAL As Ordered ONE (10:43)
[2025-01-26] MEDS: IPRATROPIUM 0.5MG/ALBUTEROL 2.5MG INH SOL UD 3ML NEB ONE (11:00)
[2025-01-26] MEDS: ceFAZolin SODIUM 3 GM in DEXTROSE 5% (D5W) MINI-BAG PLU 100 ML IV ONE (12:13)
[2025-01-26] MEDS ORDERED: KETOROLAC 30 MG/ML 1ML VIAL As Ordered ONE (12:54)
[2025-01-26] MEDS: BACITRACIN OINTMENT 30GM TUBE As Ordered ONE (13:49)
[2025-01-26] MEDS: LIDOCAINE 1% SDV 30ML VIAL As Ordered ONE (13:53)
[2025-01-26] MEDS ORDERED: OXYC1TAB23 PO (14:15)
[2025-01-26] MEDS ORDERED: CEPH500C PO (14:15)
[2025-01-26] MEDS ORDERED: oxyCODONE 5MG TAB PO PRN (14:20)
[2025-01-26] MEDS ORDERED: MORPHINE 2 MG/ML 1ML VIAL IV PRN (14:20)
[2025-01-26] MEDS ORDERED: ONDANSETRON 4MG 2ML VIAL IV PRN (14:20)
[2025-01-26] MEDS ORDERED: fentaNYL 100 MCG/2 ML INJECTION IV PRN (14:20)
[2025-01-26 15:10] VITALS: BP 129/75; TEMP 97.1; O2SAT 96
== END 2025-01-26 15:30 | disposition home or self-care (01) ==
LOC: M SDC 10:00
PROVIDERS: ATTEND Urology
DX: N50.3 Cyst of epididymis (principal); E78.5 Hyperlipidemia, unspecified; E11.9 Type 2 diabetes mellitus without complications; K21.9 Gastro-esophageal reflux disease without esophagitis; J44.9 Chronic obstructive pulmonary disease, unspecified; G47.33 Obstructive sleep apnea (adult) (pediatric); Z79.84 Long term (current) use of oral hypoglycemic drugs; Z79.899 Other long term (current) drug therapy; Z79.51 Long term (current) use of inhaled steroids
CPT/HCPCS: 54830; 88304; J0131; J0665; J0690; J1100; J1885; J2405; J3010

== ENCOUNTER → 2025-06-22 | Outpatient (CLI) | payer OTHER ==
[~2025-06-22] MED LIST changes: +CEPH500C PO; +OXYC1TAB23 PO
[2025-06-22 17:27] LABS: BASO # 0.1 10^3/uL (0.0-0.2); BASO % 0.8 % (0.0-1.0); EOS # 0.4 10^3/uL (0.0-0.5); EOS % 2.9 % (0.0-3.0); LYMPH # 3.6 10^3/uL (1.5-5.0); LYMPH % 28.5 % (24.0-44.0); MONO # 1.3 10^3/uL (0.0-0.8); MONO % 10.4 % (2.0-8.0); NEUTROPHILS # 7.1 10^3/uL (1.5-8.5); NEUTROPHILS % 56.6 % (36.0-66.0); PLATELET COUNT, AUTOMATED 258 10^3/uL (150-450)
[2025-06-22 17:55] LABS: IRON (FE) 69.0 UG/DL (65-175); PERCENT SATURATION 21.5 % (19.7-50.0)
== END ==
LOC: M WUC 13:26
PROVIDERS: ATTEND Student in an Organized Health Care Education/Training Program
DX: M79.604 Pain in right leg (principal)